=== PATIENT | male | born 1945 | race Caucasian/White ===

== ENCOUNTER 2017-06-05 03:39 | Emergency (ER) | payer MEDICARE, BC ==
[~2017-06-05] VITALS: Ht 170.2 cm; Wt 76.2 kg
[~2017-06-05 03:39] MED LIST: ASPI81TA31 PO; ATOR80TA PO; BLOO-125 IN; CHOL100043 PO; FISH12002 PO; INSU100V7 SQ; LISI10TA5 PO; METF1000 PO; PREG50CA PO; [UNRECOGNIZED DRUG - CODE] PO
[2017-06-05] MEDS ORDERED: PROMETHAZINE HCL 25 MG/1 ML VIAL IM ONE (04:00)
[2017-06-05] MEDS ORDERED: HYDROMORPHONE 1 MG/1 ML DISP.SYRIN IM ONE (04:00)
[2017-06-05] MEDS ORDERED: HYDROMORPHONE 2 MG/1 ML DISP.SYRIN ONE (04:06)
[2017-06-05] MEDS ORDERED: PROMETHAZINE HCL 25 MG/1 ML VIAL ONE (04:06)
--- NOTE | 2017-06-05 04:24 | NUR ---
Patient discharged to home in stable conditon. Written and verbal after care instructions given. Patient verbalizes understanding of instructions.
== END 2017-06-05 04:24 | disposition home or self-care (01) ==
LOC: ER 03:42
DX: M54.40 Lumbago with sciatica, unspecified side (principal); E11.9 Type 2 diabetes mellitus without complications; E78.00 Pure hypercholesterolemia, unspecified; Z79.4 Long term (current) use of insulin; Z79.82 Long term (current) use of aspirin
CPT/HCPCS: 96372 ×2; 99284; A4663; J1170; J2550

== ENCOUNTER 2018-06-10 00:02 | Emergency (ER) | payer MEDICARE, BC ==
[~2018-06-10] VITALS: Ht 170.2 cm; Wt 78.0 kg
[~2018-06-10 00:02] MED LIST changes: +BETA10003 PO; -[UNRECOGNIZED DRUG - CODE] PO
[2018-06-10] MEDS ORDERED: NITROGLYCERIN OINT 1 GM PACKET TP ONE ×3 (00:30→00:37)
[2018-06-10] MEDS ORDERED: ASPIRIN 325 MG TABLET PO ONE (00:30)
[2018-06-10] MEDS ORDERED: ASPIRIN 325 MG TABLET ONE (00:37)
[2018-06-10 00:40] LABS: BASOPHILS # (AUTO) 0.1 K/uL (0.0-8.0); BASOPHILS % (AUTO) 1.2 % (0.0-2.0); EOSINOPHILS # (AUTO) 0.2 K/uL (0.0-0.7); EOSINOPHILS % (AUTO) 2.1 % (0.0-7.0); HEMATOCRIT 49.1 % (36.7-47.1); HEMOGLOBIN 16.7 g/dL (12.5-16.3); LYMPHOCYTES # (AUTO) 2.7 K/uL (20.0-40.0); LYMPHOCYTES % (AUTO) 32.9 % (20.5-51.5); MEAN CORPUSCULAR HEMOGLOBIN 30.2 uug (23.8-33.4); MEAN CORPUSCULAR HGB CONC 34 g/dL (32.5-36.3); MEAN CORPUSCULAR VOLUME 88.4 fL (73.0-96.2); MONOCYTES # (AUTO) 0.9 K/uL (2.0-10.0); MONOCYTES % (AUTO) 10.5 % (0.0-11.0); NEUTROPHILS # (AUTO) 4.5 K/uL (1.8-8.9); NEUTROPHILS % (AUTO) 53.3 % (38.5-71.5); PLATELET COUNT (AUTO) 170 K/uL (152-348); RED BLOOD CELL COUNT(AUTO) 5.55 MIL/uL (4.06-5.63); WHITE BLOOD COUNT (AUTO) 8.4 K/uL (3.6-10.2)
[2018-06-10 00:51] LABS: CARBON DIOXIDE 27 mmol/L (21-32); CHLORIDE 101 mmol/L (98-107); GLUCOSE 77 mg/dL (74-106); POTASSIUM 3.8 mmol/L (3.5-5.1); UREA NITROGEN, BLOOD 24 mg/dL (7-18)
[2018-06-10 00:56] LABS: ALANINE AMINOTRANSFERASE 35 U/L (16-63); ALKALINE PHOSPHATASE 103 U/L (50-136); ASPARTATE AMINOTRANSFERASE 31 U/L (15-37); BILIRUBIN,DIRECT 0.2 mg/dL (0.0-0.2); BILIRUBIN,TOTAL 0.6 mg/dL (0.2-1.0); TOTAL PROTEIN, SERUM 7.5 g/dL (6.4-8.2)
--- NOTE | 2018-06-10 01:03 | NUR ---
Xray at bedside
--- NOTE | 2018-06-10 01:40 | NUR ---
Patient discharged to home in stable conditon. Written and verbal after care instructions given. Patient verbalizes understanding of instructions. Ambulated from ER with stable gait. peripheral IV removed prior to d/c. All belongings with a patient.
[2018-06-10 01:44] VITALS: BP 121/63
== END 2018-06-10 01:45 | disposition home or self-care (01) ==
LOC: ER 00:06
DX: R07.89 Other chest pain (principal); I25.10 Atherosclerotic heart disease of native coronary artery without angina pectoris; E11.9 Type 2 diabetes mellitus without complications; E78.00 Pure hypercholesterolemia, unspecified
CPT/HCPCS: 36415; 71045; 80048; 80076; 84484; 85025; 85730; 93005; 99285; A4663; 70030-TC

== ENCOUNTER 2019-02-12 18:06 | Emergency (ER) | payer MEDICARE, BC ==
[~2019-02-12] VITALS: Ht 170.2 cm; Wt 79.4 kg
--- NOTE | 2019-02-12 18:06 | NUR ---
Patient is here with spouse & a daughter, who is an opthalmologist for R shoulder and R arms pains since Thursday night of last week. No trauma associated with the pains. The patient describes the pain as constant, aching, nonprovoked & non-radiating.
--- NOTE | 2019-02-12 18:20 | NUR ---
Dr Restrepo is at bedside doing the MSE.
[2019-02-12] MEDS ORDERED: ONDANSETRON IV *ER 4 MG/2 ML VIAL IV ONE (18:30)
[2019-02-12] MEDS ORDERED: NITROGLYCERIN OINT 1 GM PACKET TP ONE ×2 (18:30→18:46)
[2019-02-12] MEDS ORDERED: HYDROCODONE/APAP 10-325 MG TABLET PO ONE (18:30)
[2019-02-12] MEDS ORDERED: ASPIRIN 81 MG TAB.CHEW PO ONE (18:30)
[2019-02-12 18:44] LABS: BASOPHILS # (AUTO) 0.1 K/uL (0.0-8.0); BASOPHILS % (AUTO) 1.1 % (0.0-2.0); EOSINOPHILS # (AUTO) 0.2 K/uL (0.0-0.7); HEMATOCRIT 48.5 % (36.7-47.1); HEMOGLOBIN 15.9 g/dL (12.5-16.3); LYMPHOCYTES # (AUTO) 2.1 K/uL (20.0-40.0); LYMPHOCYTES % (AUTO) 38.8 % (20.5-51.5); MEAN CORPUSCULAR HEMOGLOBIN 28.4 uug (23.8-33.4); MEAN CORPUSCULAR HGB CONC 33 g/dL (32.5-36.3); MEAN CORPUSCULAR VOLUME 86.5 fL (73.0-96.2); MONOCYTES # (AUTO) 0.6 K/uL (2.0-10.0); MONOCYTES % (AUTO) 11.6 % (0.0-11.0); NEUTROPHILS # (AUTO) 2.5 K/uL (1.8-8.9); NEUTROPHILS % (AUTO) 45.5 % (38.5-71.5); PLATELET COUNT (AUTO) 186 K/uL (152-348); WHITE BLOOD COUNT (AUTO) 5.5 K/uL (3.6-10.2)
[2019-02-12] MEDS ORDERED: ASPIRIN 81 MG TAB.CHEW ONE (18:46)
[2019-02-12] MEDS ORDERED: ONDANSETRON 4 MG/2 ML VIAL ONE (18:46)
[2019-02-12] MEDS ORDERED: HYDROCODONE/APAP 10-325 MG TABLET ONE (18:46)
[2019-02-12 18:53] VITALS: BP 139/82
[2019-02-12 18:53] LABS: CARBON DIOXIDE 29 mmol/L (21-32); CHLORIDE 102 mmol/L (98-107); CREATININE 1.2 mg/dL (0.6-1.3); GLUCOSE 224 mg/dL (74-106); POTASSIUM 4.5 mmol/L (3.5-5.1); UREA NITROGEN, BLOOD 19 mg/dL (7-18)
--- NOTE | 2019-02-12 19:00 | NUR ---
Received report from Irasema WHEAT, assumed care of pt., pt. resting in bed, w/ eyes open, family at bedside, NAD
[2019-02-12 19:06] LABS: ALANINE AMINOTRANSFERASE 35 U/L (16-63); ALKALINE PHOSPHATASE 81 U/L (50-136); ASPARTATE AMINOTRANSFERASE 18 U/L (15-37); BILIRUBIN,DIRECT 0.1 mg/dL (0.0-0.2); BILIRUBIN,TOTAL 0.6 mg/dL (0.2-1.0); TOTAL PROTEIN, SERUM 7.1 g/dL (6.4-8.2)
--- NOTE | 2019-02-12 19:10 | NUR ---
Patient is in x-ray department@this time. Hands off report given to JARRET Alexis accordingly.
--- NOTE | 2019-02-12 19:20 | NUR ---
Pt. back in room, NAD
--- NOTE | 2019-02-12 20:02 | NUR ---
Pt. given warm blanket, states pain has decreased, dimmed lights for pt comfort, bed in low position, all needs met,
--- NOTE | 2019-02-12 20:53 | NUR ---
Pt. placed on RI 2L
--- NOTE | 2019-02-12 21:26 | NUR ---
Phleb. tech. at bedside for 2nd trop. draw,
--- NOTE | 2019-02-12 22:24 | NUR ---
Patient discharged to home in stable conditon. Written and verbal after care instructions given. Patient verbalizes understanding of instructions. Pt. d/c w/ prescription per MD order, d/c papers signed, all belongings w/ pt., ID band/IV removed, ambulated off unit w/ steady gait accompanied by , instructed not to drive, NAD
== END 2019-02-12 22:28 | disposition home or self-care (01) ==
LOC: ER 18:06
DX: M25.511 Pain in right shoulder (principal); E11.65 Type 2 diabetes mellitus with hyperglycemia; E78.00 Pure hypercholesterolemia, unspecified; Z95.1 Presence of aortocoronary bypass graft; Z87.09 Personal history of other diseases of the respiratory system; Z79.899 Other long term (current) drug therapy; Z79.4 Long term (current) use of insulin; Z79.82 Long term (current) use of aspirin
CPT/HCPCS: 36415; 71045; 80048; 80076; 83880; 84484 ×2; 85025; 93005; 96374; 99284; J2405; 70030-TC; A4663

== ENCOUNTER 2021-04-28 10:14 | Emergency (ER) | payer MEDICARE, BC ==
[~2021-04-28] VITALS: Ht 170.2 cm; Wt 74.4 kg
[~2021-04-28 10:14] MED LIST changes: -BETA10003 PO; -BLOO-125 IN; +LISI10TA29 PO; -LISI10TA5 PO
--- NOTE | 2021-04-28 10:30 | NUR ---
Dr Lovelace at the bedside for MSE.
[2021-04-28 11:09] LABS: HEMATOCRIT 45.5 % (36.7-47.1); MEAN CORPUSCULAR HEMOGLOBIN 28.4 uug (23.8-33.4); MEAN CORPUSCULAR VOLUME 84.1 fL (73.0-96.2); PLATELET COUNT (AUTO) 205 K/uL (152-348)
[2021-04-28 11:35] LABS: POTASSIUM 3.9 mmol/L (3.5-5.1)
[2021-04-28 13:35] LABS: *BILIRUBIN,URIN NEGATIVE (NEGATIVE); *BLOOD, URINE NEGATIVE (NEGATIVE); *CLARITY,URINE CLEAR (CLEAR); *COLOR,URINE YELLOW (YELLOW); *KETONES,URINE NEGATIVE (NEGATIVE); *UROBILINOGEN,URINE 0.2 E.U./dl (NORMAL); LEUKOCYTE ESTERASE ,URINE NEGATIVE (NEGATIVE); NITRITE, URINE NEGATIVE (NEGATIVE); UGLUCOSE TRACE (NEGATIVE)
--- NOTE | 2021-04-28 13:50 | NUR ---
Dr Lovelace spoke to [facility] [employer] for admit.
[2021-04-28] MEDS ORDERED: DEXTROSE 50% 50 ML DISP.SYRIN IV PRN (14:00)
[2021-04-28] MEDS ORDERED: CEFTRIAXONE 1 G in IV DEXTROSE 5% 50 ML IV SCH (14:00)
[2021-04-28] MEDS ORDERED: INSULIN REGULAR, HUMAN 300 UNIT/3 ML VIAL SQ PRN (14:00)
[2021-04-28] MEDS ORDERED: AZITHROMYCIN IV 500 MG in IV DEXTROSE 5% 250 ML IV SCH (14:00)
[2021-04-28] MEDS ORDERED: INSULIN REGULAR, HUMAN 300 UNITS/3 ML VIAL SQ PRN (14:00)
[2021-04-28 15:06] LABS: BACTERIA,URINE NONE SEEN /HPF (NONE SEEN); RBC,URINE 0-3 /HPF (0-3); SQUAMOUS EPITHELIAL CELL,UR NONE SEEN /HPF (NONE SEEN); WBC,URINE 0-3 /HPF (0-3)
--- NOTE | 2021-04-28 15:50 | NUR ---
IV removed. Catheter intact and site benign. Pressure and 4x4 gauze applied to site. No bleeding noted.
--- NOTE | 2021-04-28 15:52 | NUR ---
Patient does not wish to proceed with medical care recommended by Dr. Taylor). Patient given information related to possible complications, up to and including , which could occur as a result of leaving the hospital at this time. Patient verbalizes understanding of risks involved due to leaving against medical advice. Patient has signed AMA form.
[2021-04-28 15:55] VITALS: BP 147/75
[2021-04-28] MEDS ORDERED: BLOOD SUGAR DIAGNOSTIC 1 EACH STRIP VI SCH (16:30)
[2021-04-29] MEDS ORDERED: DEXAMETHASONE SOD PHOSPHATE 4 MG INJ IV SCH (09:00)
== END 2021-04-28 15:56 | disposition left against medical advice (07) ==
LOC: ER 10:14
DX: U07.1 COVID-19 (principal); J12.82 Pneumonia due to coronavirus disease 2019; R94.31 Abnormal electrocardiogram [ECG] [EKG]; Z53.29 Procedure and treatment not carried out because of patient's decision for other reasons; Z95.1 Presence of aortocoronary bypass graft; G47.30 Sleep apnea, unspecified; J84.10 Pulmonary fibrosis, unspecified; E11.9 Type 2 diabetes mellitus without complications; Z79.4 Long term (current) use of insulin; Z82.49 Family history of ischemic heart disease and other diseases of the circulatory system; Z79.82 Long term (current) use of aspirin; Z79.899 Other long term (current) drug therapy; E78.00 Pure hypercholesterolemia, unspecified; J96.00 Acute respiratory failure, unspecified whether with hypoxia or hypercapnia; I11.9 Hypertensive heart disease without heart failure; M54.30 Sciatica, unspecified side
CPT/HCPCS: 36415; 70030-TC; 71045; 83605; 84443; 85025; 85730; 87040; 87086; 93005; A4663; J7030

== ENCOUNTER 2022-05-01 17:44 | Emergency (ER) | payer MEDICARE, BC ==
[~2022-05-01] VITALS: Ht 170.2 cm; Wt 72.6 kg
[~2022-05-01 17:44] MED LIST changes: -PREG50CA PO
[2022-05-01] MEDS ORDERED: INSU100C4 SQ (18:15)
[2022-05-01] MEDS ORDERED: INSU100V7 SQ (18:15)
--- NOTE | 2022-05-01 18:41 | NUR ---
COVID swab collected and taken to LAB.
[2022-05-01 19:03] LABS: MEAN CORPUSCULAR HEMOGLOBIN 28.3 uug (23.8-33.4); MEAN CORPUSCULAR VOLUME 85.8 fL (73.0-96.2); PLATELET COUNT (AUTO) 242 K/uL (152-348)
--- NOTE | 2022-05-01 19:05 | NUR ---
Change of shift report from Yvette WHEAT
[2022-05-01 19:07] LABS: CREATININE 1.1 mg/dL (0.6-1.3); POTASSIUM 4.5 mmol/L (3.5-5.1)
[2022-05-01 19:13] LABS: BILIRUBIN,TOTAL 0.4 mg/dL (0.2-1.0); TOTAL PROTEIN, SERUM 7.6 g/dL (6.4-8.2)
--- NOTE | 2022-05-01 20:08 | NUR ---
Patient discharged to home in stable condition. Written and verbal after care instructions given. Patient verbalizes understanding of instructions. Stressed follow up or return to ER for worsening s/s. Patient is a/ox4, NAD noted. Patient is able to walk with steady gait
[2022-05-01 20:09] VITALS: BP 130/74
== END 2022-05-01 20:10 | disposition home or self-care (01) ==
LOC: ER 17:44
DX: J20.8 Acute bronchitis due to other specified organisms (principal); Z20.822 Contact with and (suspected) exposure to COVID-19; E11.9 Type 2 diabetes mellitus without complications; Z79.82 Long term (current) use of aspirin; Z79.4 Long term (current) use of insulin; Z79.84 Long term (current) use of oral hypoglycemic drugs; Z95.1 Presence of aortocoronary bypass graft; J84.10 Pulmonary fibrosis, unspecified; G47.30 Sleep apnea, unspecified; E78.00 Pure hypercholesterolemia, unspecified; Z79.899 Other long term (current) drug therapy
CPT/HCPCS: 36415; 71045; 85025; A4663

== ENCOUNTER 2022-09-11 18:37 | Emergency (ER) | payer MEDICARE, BC ==
[~2022-09-11] VITALS: Ht 170.2 cm; Wt 72.6 kg
[~2022-09-11 18:37] MED LIST changes: +INSU100C4 SQ
--- NOTE | 2022-09-11 19:10 | NUR ---
Received report from JARRET Mohan.
--- NOTE | 2022-09-11 19:34 | NUR ---
Dr. Shaikh at bedside. MSE in progress.
[2022-09-11] MEDS ORDERED: HYDROMORPHONE 1 MG/1 ML DISP.SYRIN IM ONE (19:45)
[2022-09-11] MEDS ORDERED: ONDANSETRON HCL 4 MG TABLET PO ONE (19:45)
[2022-09-11] MEDS ORDERED: HYDR-3980 PO (20:17)
[2022-09-11] MEDS ORDERED: HYDROMORPHONE 2 MG/1 ML DISP.SYRIN ONE (20:36)
[2022-09-11] MEDS ORDERED: ONDANSETRON HCL 4 MG TABLET ONE (20:36)
[2022-09-11 20:38] LABS: *BILIRUBIN,URIN NEGATIVE (NEGATIVE); *BLOOD, URINE NEGATIVE (NEGATIVE); *CLARITY,URINE CLEAR (CLEAR); *COLOR,URINE YELLOW (YELLOW); *KETONES,URINE TRACE (NEGATIVE); *UROBILINOGEN,URINE 0.2 E.U./dl (NORMAL); LEUKOCYTE ESTERASE ,URINE NEGATIVE (NEGATIVE); NITRITE, URINE NEGATIVE (NEGATIVE); PH,URINE 5.5 (5.0-8.0)
[2022-09-11 20:40] LABS: UGLUCOSE 3+ (NEGATIVE)
[2022-09-11 21:14] LABS: RBC,URINE NONE SEEN /HPF (0-3); WBC,URINE 0-3 /HPF (0-3)
[2022-09-11 21:15] LABS: BACTERIA,URINE NONE SEEN /HPF (NONE SEEN); SQUAMOUS EPITHELIAL CELL,UR FEW /HPF (NONE SEEN)
--- NOTE | 2022-09-11 21:30 | NUR ---
Pt has started feeling dizzy from the dilaudid and is unable to walk.
--- NOTE | 2022-09-11 22:00 | NUR ---
PT stated that he is now feeling nauseous and had one episode of emisis.
[2022-09-11] MEDS ORDERED: PROCHLORPERAZINE EDISYLATE 10 MG/2 ML VIAL IM ONE (22:15)
[2022-09-11] MEDS ORDERED: PROCHLORPERAZINE EDISYLATE 10 MG/2 ML VIAL ONE (22:15)
--- NOTE | 2022-09-11 23:15 | NUR ---
Patient discharged to home in stable condition. A/O x 4. NAD noted. Emesis has ceased. All belongings at bedside. Written and verbal after care instructions given. Patient verbalizes understanding of instructions. Stressed follow up or return to ER for worsening s/s.
[2022-09-11 23:20] VITALS: BP 120/77
== END 2022-09-11 23:20 | disposition home or self-care (01) ==
LOC: ER 18:37
DX: S39.012A Strain of muscle, fascia and tendon of lower back, initial encounter (principal); V49.9XXA Car occupant (driver) (passenger) injured in unspecified traffic accident, initial encounter; Y92.410 Unspecified street and highway as the place of occurrence of the external cause; R11.2 Nausea with vomiting, unspecified; Z79.82 Long term (current) use of aspirin; Z79.899 Other long term (current) drug therapy; Z79.4 Long term (current) use of insulin; E11.9 Type 2 diabetes mellitus without complications; E78.00 Pure hypercholesterolemia, unspecified; Z95.1 Presence of aortocoronary bypass graft; G47.30 Sleep apnea, unspecified; J84.10 Pulmonary fibrosis, unspecified; Z86.16 Personal history of COVID-19; Z95.5 Presence of coronary angioplasty implant and graft
CPT/HCPCS: 99284; 81001; 72100; 96372 ×2; J0780; J1170; A4663; Q0162

== ENCOUNTER 2025-08-07 19:25 | Inpatient (IN) | payer MEDICARE, BC ==
[~2025-08-07] VITALS: Ht 167.6 cm; Wt 61.2 kg
[~2025-08-07 19:25] MED LIST changes: +HYDR-3980 PO
[2025-08-07 20:08] LABS: PLATELET COUNT (AUTO) 200 K/uL (152-348); RED BLOOD CELL COUNT(AUTO) 6.34 MIL/uL (4.06-5.63); RED CELL DISTRIBUTION WIDTH 17.0 % (12.1-16.2); WHITE BLOOD COUNT (AUTO) 7.8 K/uL (3.6-10.2)
[2025-08-07 20:18] LABS: CREATININE 1.1 mg/dL (0.6-1.3); SODIUM SERUM 136 mmol/L (136-145); UREA NITROGEN, BLOOD 23 mg/dL (7-18)
[2025-08-07 20:23] LABS: ASPARTATE AMINOTRANSFERASE 20 U/L (15-37); TOTAL PROTEIN, SERUM 7.8 g/dL (6.4-8.2)
[2025-08-07] MEDS ORDERED: ASPIRIN 81 MG TAB.CHEW ONE (20:26)
[2025-08-07] MEDS ORDERED: NITROGLYCERIN OINT 1 GM PACKET TP ONE (20:26)
[2025-08-07] MEDS: NITROGLYCERIN OINT 1 GM PACKET TP ONE (20:35)
[2025-08-07] MEDS: ASPIRIN 81 MG TAB.CHEW PO ONE (20:35)
[2025-08-07] MEDS ORDERED: INSULIN REGULAR, HUMAN 300 UNITS/3 ML VIAL SQ PRN (22:30)
[2025-08-07] MEDS ORDERED: DEXTROSE 50% 50 ML DISP.SYRIN IV PRN (22:30)
[2025-08-07] MEDS ORDERED: ONDANSETRON 4 MG/2 ML VIAL IV PRN (22:30)
[2025-08-07] MEDS ORDERED: ACETAMINOPHEN 325 MG TABLET PO PRN (22:30)
[2025-08-07] MEDS ORDERED: MORPHINE SULFATE 2 MG/1 ML DISP.SYRIN IVP PRN (22:30)
[2025-08-07 23:35] VITALS: BP 133/72
[2025-08-08 00:46] VITALS: BP 132/70; TEMP 97.8; O2SAT 93
[2025-08-08 01:14] VITALS: BP 132/70; TEMP 97.8; O2SAT 93
[2025-08-08 04:16] VITALS: BP 123/74; TEMP 98.4; O2SAT 92
[2025-08-08] MEDS: BLOOD SUGAR DIAGNOSTIC 1 EACH STRIP VI SCH (05:46)
[2025-08-08 07:02] LABS: PLATELET COUNT (AUTO) 214 K/uL (152-348); RED BLOOD CELL COUNT(AUTO) 6.00 MIL/uL (4.06-5.63); RED CELL DISTRIBUTION WIDTH 16.5 % (12.1-16.2); WHITE BLOOD COUNT (AUTO) 6.3 K/uL (3.6-10.2)
[2025-08-08 07:33] VITALS: BP 138/75; TEMP 97.6; O2SAT 94
[2025-08-08 07:37] LABS: ASPARTATE AMINOTRANSFERASE 17 U/L (15-37); CREATININE 1.0 mg/dL (0.6-1.3); SODIUM SERUM 137 mmol/L (136-145); TOTAL PROTEIN, SERUM 7.0 g/dL (6.4-8.2); UREA NITROGEN, BLOOD 22 mg/dL (7-18)
[2025-08-08 08:03] VITALS: BP 138/75; TEMP 97.6; O2SAT 94
[2025-08-08] MEDS: LISINOPRIL 10 MG TABLET PO SCH (09:37)
[2025-08-08] MEDS: ASPIRIN 81 MG TAB.CHEW PO SCH (09:37)
[2025-08-08] MEDS: INSULIN GLARGINE,HUM 300 UNITS/3 ML CARTRIDGE SQ SCH (09:39)
[2025-08-08] MEDS: HEPARIN SODIUM,PORCINE 5,000 UNITS/ML VIAL SQ SCH (09:39)
[2025-08-08] MEDS ORDERED: OMEG-49 PO (11:16)
[2025-08-08] MEDS ORDERED: FISH OIL 1000 MG PO (11:17)
[2025-08-08 11:37] VITALS: BP 127/72; TEMP 97.7; O2SAT 93
[2025-08-08] MEDS: OMEGA-3 FATTY ACIDS/FISH OIL CAPSULE PO SCH (12:19)
[2025-08-08] MEDS: INSULIN REGULAR, HUMAN 1000 UNIT/10 ML VIAL SQ PRN (12:21)
[2025-08-08] MEDS ORDERED: ATORVASTATIN 40 MG TABLET PO SCH (21:00)
== END 2025-08-08 14:30 | disposition home or self-care (01) | DRG 310 ==
LOC: ER 19:32 → TELE3 22:00
PROVIDERS: ADMIT Internal Medicine; ATTEND Internal Medicine
DX: I49.3 Ventricular premature depolarization (principal); J84.10 Pulmonary fibrosis, unspecified; Z95.1 Presence of aortocoronary bypass graft; D75.1 Secondary polycythemia; I11.9 Hypertensive heart disease without heart failure; I25.10 Atherosclerotic heart disease of native coronary artery without angina pectoris; E11.9 Type 2 diabetes mellitus without complications; R07.89 Other chest pain; Z95.5 Presence of coronary angioplasty implant and graft; Z79.84 Long term (current) use of oral hypoglycemic drugs; Z79.4 Long term (current) use of insulin; Z79.82 Long term (current) use of aspirin; Z79.899 Other long term (current) drug therapy; Z99.81 Dependence on supplemental oxygen
CPT/HCPCS: 36415; 71045; 71250; 84100; 84484; 85025; 85730; A4606; A4663; G0378; J1644; J1815